=== PATIENT | male | born 1980 | race Caucasian/White ===

== ENCOUNTER 2023-01-06 15:47 | Emergency (ER) | payer SELFPAY ==
[2023-01-06 15:51] VITALS: BP 140/94; PULSE 62; RESP 18; TEMP 36.3; O2SAT 96; BMI 28.0
--- NOTE | 2023-01-06 16:50 | ED.GENADULT ---
HPI - General Adult General Date Seen: 01/06/23 Chief complaint: Flank Pain Stated complaint: Back pain Time Seen by Provider: 01/06/23 15:52 Source: patient Mode of arrival: ambulatory Limitations: no limitations History of Present Illness HPI narrative: Patient is a 42-year-old male who presents for evaluation of midline thoracic back pain. He says he has been having some pain in this area for the past couple of weeks but yesterday he took off the brace that he wears to protect his lower back, where he also has problems. When he took the brace off he said he developed sudden sharp pain in his mid thoracic back. He has a little bit of pain that wraps around the right side of his chest wall. He has increased pain with movement, he was able to find a comfortable position laying on his side in the position, took ibuprofen and some leftover hydrocodone and by this morning was feeling better. However, he says he twisted to reach for something and pain recurred. As result, he comes into the emergency department. He does not have difficulty breathing. He did have an episode of vomiting yesterday which he thinks it was because the pain was severe. He denies any fevers, night sweats, chills, or other systemic symptoms. He has not had any trauma. General health is good. Related Data Home Medications Medication Instructions Recorded Confirmed No Known Home Medications 01/06/23 01/06/23 Allergies Allergy/AdvReac Type Severity Reaction Status Date / Time No Known Drug Allergies Allergy Verified 01/06/23 16:00 Review of Systems Status of ROS: Reports: 6 or more systems reviewed and unremarkable except as noted in History and below [facility] Social History Smoking Status: Never smoker Do you use any of these nicotine containing products: None Second hand tobacco smoke exposure: No How often do you have a drink containing alcohol: monthly or less How often do you have six or more drinks on one occasion: Less than monthly AUDIT-C Alcohol total score: 2 Non-prescribed substance use: denies use service: No Exam Narrative: Exam Narrative: Vital signs as noted above. In general, an alert, nontoxic male. Lying in a position on the bed. Head: Normocephalic, atraumatic. Eyes: Pupils are equal reactive. Extraocular movements are full. Conjunctivae are normal. ENT: Mucous membranes are moist. Neck: Supple without lymphadenopathy. Heart: Regular rate and rhythm. No murmur or rub. Lungs: Clear bilaterally. No increased work of breathing, crackles or wheezes. Back: He has some localized tenderness over the mid thoracic spine. There is no erythema or warmth. Abdomen: Soft and nontender. Extremities: Well perfused. Neurologic: Patient is alert and oriented to person and place. Speech is fluent. Face is symmetric. Moves all extremities equally. Strength equal in upper extremities. Sensation intact to light touch. Affect: Normal. Skin: Warm and dry. Well perfused. Const: Vital Signs, click to edit/add: Vital Signs - 24 hr 01/06/23 15:51 Temperature 97.3 F L Pulse Rate [Right Pulse Oximeter] 62 Respiratory Rate 18 Blood Pressure [Ri ght Upper Arm] 140/94 H Pulse Oximetry 96 Oxygen Delivery Me thod Room Air Documenting provider has reviewed patient's vital signs: yes Course Course Hospital Course: Patient presents with thoracic back pain which seems to be most likely muscular in origin although disc herniation cannot be completely ruled out. Discussed with him that it is an unusual place for herniated disc. No red flags to suggest that he needs immediate imaging. I have recommended a trial of ibuprofen and Tylenol, muscle relaxer, prednisone. Primary care follow-up if not improving with conservative measures, return to the emergency department at any time for severe or new symptoms. Vital Signs Vital signs: Initial Vital Signs Temperature 97.3 F L 01/06/23 15:51 Temperature Source Temporal Artery Scan 01/06/23 15:51 Pulse Rate 62 01/06/23 15:51 Pulse Rhythm Regular 01/06/23 15:51 Respiratory Rate 18 01/06/23 15:51 Blood Pressure 140/94 H 01/06/23 15:51 Blood Pressure Mean 109 H 01/06/23 15:51 Pulse Oximetry 96 01/06/23 15:51 Oxygen Delivery Method Room Air 01/06/23 15:51 Vital Signs Temperature 97.3 F L 01/06/23 15:51 Pulse Rate 62 01/06/23 15:51 Respiratory Rate 18 01/06/23 15:51 Blood Pressure 140/94 H 01/06/23 15:51 Pulse Oximetry 96 01/06/23 15:51 Oxygen Delivery Method Room Air 01/06/23 15:51 Temperature 97.3 F L 01/06/23 15:51 Pulse Rate 62 01/06/23 15:51 Respiratory Rate 18 01/06/23 15:51 Blood Pressure 140/94 H 01/06/23 15:51 Pulse Oximetry 96 01/06/23 15:51 Oxygen Delivery Method Room Air 01/06/23 15:51 Discharge Plan Discharge Clinical Impression: Acute thoracic back pain Patient Disposition: Home, Self-Care Condition: Stable Instructions: Thoracic Pain (ED) Additional Instructions: Ibuprofen 400 mg plus Tylenol 1000 mg 3 times daily with food for the next week or so. Muscle relaxer if needed. Prednisone as prescribed: 3 tabs daily for 3 days, then 2 tabs daily for 3 days, then 1 tab daily for 3 days. If you develop new symptoms such as severe uncontrolled pain, fevers, neurologic changes, return to the emergency department. Otherwise, primary care follow-up if not improving over the coming week. Imaging may be considered at that time. Prescriptions: No Action No Known Home Medications Stand Alone Forms: digeduth Info Instructions
== END 2023-01-06 17:16 | disposition home or self-care (01) ==
LOC: ED 16:56
PROVIDERS: Emergency Provider Emergency Medicine; PCP Physician Assistant
DX: M54.6 Pain in thoracic spine (principal)
CPT/HCPCS: 99283; 99284